=== PATIENT | male | born 1990 | race Caucasian/White ===

== ENCOUNTER 2018-11-12 12:30 | Emergency (ER) | payer SELFPAY ==
[~2018-11-12] VITALS: Ht 182.9 cm; Wt 89.6 kg
[2018-11-12 13:47] LABS: HEMATOCRIT 44.5 % (39.0-50.0); HEMOGLOBIN 15.8 g/dl (14.0-18.0); IMMATURE GRANULOCYTES 0.3 % (0.0-5.0); MEAN CELL VOLUME 84.9 fL CALC (80.0-100.0); MEAN CORPUSCULAR HGB 30.2 pG CALC (26.0-32.0); MEAN CORPUSCULAR HGB CONC 35.5 g/L CALC (32.0-36.0); NEUT# 4.67 thou/uL (1.82-7.42); RED BLOOD COUNT 5.24 mill/uL (4.70-6.10); RED CELL DISTRI WIDTH 12.3 % (11.5-15.5)
[2018-11-12 13:55] LABS: ALBUMIN 4.9 g/dL (3.2-5.0); ALKALINE PHOSPHATASE 93 u/l (38-126); ANION GAP 16 (6-22 (CALC)); BILIRUBIN, TOTAL 0.7 mg/dL (0.0-1.4); BUN 12 mg/dL (9-20); BUN/CREATININE RATIO 13 (12-20 (CALC)); CARBON DIOXIDE 24 mmol/l (22-30); CHLORIDE 105 mmol/l (95-108); GFR > 60 ML/MIN (>=60 (CALC)); GFR FOR AFR.AMER. > 60 ML/MIN (>=60 (CALC)); SGOT/AST 21 u/l (17-59); SODIUM 140 mmol/l (137-146); TOTAL PROTEIN 7.9 g/dL (6.3-8.2)
[2018-11-12] MEDS ORDERED: ATIVAN0.5 MG PO (13:56)
[2018-11-12 14:02] VITALS: BP 135/78
== END 2018-11-12 14:18 | disposition home or self-care (01) | DRG 880 ==
LOC: ED 12:30
PROVIDERS: Emergency Medicine
DX: F41.9 Anxiety disorder, unspecified (principal)